=== PATIENT | female | born 1955 | race Caucasian/White ===

== ENCOUNTER 2017-10-10 11:05 | Emergency (ER) | payer BC, SELFPAY ==
[2017-10-10 11:24] VITALS: BP 133/86; PULSE 102; RESP 18; TEMP 36.7; O2SAT 97; BMI 26.2
--- NOTE | 2017-10-10 11:30 | XR_ITS ---
XR chest portable Ordering Physician: Judy Sims MD Patient Age: 62 years: Female HISTORY: ITS.REASON: cough congestion. TECHNIQUE: AP upright chest COMPARISON :Previous 05/18/2017 2 view chest & 05/17/2012 Previous CTA chest 05/18/2017 FINDINGS There are chronic interstitial changes throughout the lung kidd bilaterally most evident towards the lower lobes. Associated with mild hyperexpansion. Emphysematous changes are similar to previous studies . No discrete focal pneumonia. Only question some mild atelectasis at the right lung base along with density from the anterior fat pad at the right cardiophrenic angle. Evident anterior fat pad accounts for the density towards the right cardiophrenic angle. Mild pleural thickening along the lateral right chest is again seen and similar to less evident than previous CXR studies from 05/18/2017 IMPRESSION: Nothing definitely acute. Chronic changes COPD. Emphysematous and chronic changes bilaterally Mild fibrotic lung changes towards bases appear similar to previous studies with nothing definitely acute. Question slight additional atelectasis toward right base.. But No definitive pneumonia currently
--- NOTE | 2017-10-10 11:32 | HMH.EDURI ---
ED Disposition Clinical Impression: Acute bronchitis Disposition: Home, Self-Care Condition on Discharge: Good Instructions: Acute Bronchitis Additional Instructions: see family MD next week; Rx Medrol dose yesseina; will refill your Reglan for your chronic reflux issues since you are out. Prescriptions: methylPREDNISolone [Medrol] 4 mg PO DAILY #1 tab.ds.pk Metoclopramide HCl [Reglan 5mg Tablet] 5 mg PO ACHS 30 Days #60 tab Referrals: Toya Esteves [Primary Care Provider] - - Critical Care Critical Care Time: No Attestation: On 10/10/17, the high probability of a clinically significant, sudden or life threatening deterioration of the following system(s) required my full and direct attention, intervention and personal management. The time I documented below is in addition to time spent performing reported procedures but includes the following listed in this critical care notation. Medical Decision Making - Medical Records Medical records reviewed: Yes: I reviewed the patient's medical records. Vital Signs: 10/10/17 11:24 Temperature 98.0 F Temperature Source Oral Pulse Rate [Right Brachial] 102 H Respiratory Rate 18 Blood Pressure [Right Arm] 133/86 Blood Pressure Mean [Right Arm] 101 Blood Pressure Source [Right Arm] Automatic Cuff Blood Pressure Position [Right Arm] Sitting 02 Sat by Pulse Oximetry 97 Oxygen Delivery Method Room Air - Lab Data Lab results reviewed: Yes: I reviewed the patient's lab results. Lab Results 10/10/17 11:35: WBC 7.0, RBC 5.61 H, Hgb 15.4, Hct 47.3 H, MCV 84.4, MCH 27.5, MCHC 32.6, RDW 13.1, Plt Count 258, MPV 7.3 L, Neut % (Auto) 71.3, Lymph % (Auto) 20.0, [place] % (Auto) 5.5, Eos % (Auto) 2.3, Baso % (Auto) 0.8, Neut # (Auto) 5.0, Lymph # (Auto) 1.4, [place] # (Auto) 0.4, Eos # (Auto) 0.2, Baso # (Auto) 0.1 10/10/17 11:35: Sodium 141, Potassium 4.5, Chloride 104, Carbon Dioxide 25, Anion Gap 16.5 H, BUN 9, Creatinine 1.09 H, Estimated Creat Clear 55, Estimated GFR 51 L, Est GFR ( Amer) 62, Glucose 126 H, Calcium 9.4, Total Bilirubin 0.5, AST 24, ALT 25, Alkaline Phosphatase 113, Total Protein 8.0, Albumin 3.8, Globulin 4.2 H, Albumin/Globulin Ratio 0.9 L 10/10/17 11:35: Lactic Acid 1.1 10/10/17 11:35: Influenza Type A Ag Negative, Influenza Type B Ag Negative Result diagrams: 10/10/17 11:35 10/10/17 11:35 Orders (Tests/Meds): ORDERS Category Date Time Status Blood Culture Routine Micro 10/10/17 11:35 Received - Radiology Data #1 Image(s): Chest Image Reviewed: Yes I reviewed the patient's radiology image Preliminary Findings: No Infiltrates Seen, Normal Heart Size Has some possible ?atelectasis at the bases as well as some changes diffusely consistent with COPD. ED prelim; Radiologist reading states no definitive pneumonia, question atelectasis - [place] Inquiry Pt receiving controlled substance: No URI/Sore Throat HPI - General Stated Complaint: acid reflex Mode of Arrival: Ambulatory Source of Information: Patient Limitations: No Limitations - History of Present Illness HPI Narrative: Pt reports she is a smoker, has had a tight cough for the past seven days with chills; did not have a flu vaccination this year. At times she coughs forcefully and produces some streaks of blood, but she does not have dori hemoptysis. She denies SOB or chest pain, has chronic GERD, denies hematemesis, denies blood from below, denies epistaxis. No sore throat. No FLYNN or calf pain; no syncope; no night sweats or weight loss reported. MD Complaint: cough, nasal congestion Treatments prior to arrival: none - Related Data Previous Rx's Medication Instructions Recorded Metoclopramide HCl [Reglan 5mg 5 mg PO ACHS 30 Days #60 tab 10/10/17 Tablet] methylPREDNISolone [Medrol] 4 mg PO DAILY #1 tab.ds.pk 10/10/17 Allergies Allergy/AdvReac Type Severity Reaction Status Date / Time codeine [CODEINE] Allergy Unknown Unverified 09/08/17 14
--- NOTE | 2017-10-10 11:36 | ED_ITS ---
ED Disposition Clinical Impression: Acute bronchitis Disposition: Home, Self-Care Condition on Discharge: Good Instructions: Acute Bronchitis Additional Instructions: see family MD next week; Rx Medrol dose yessenia; will refill your Reglan for your chronic reflux issues since you are out. Prescriptions: methylPREDNISolone [Medrol] 4 mg PO DAILY #1 tab.ds.pk Metoclopramide HCl [Reglan 5mg Tablet] 5 mg PO ACHS 30 Days #60 tab Referrals: Toya Esteves [Primary Care Provider] - - Critical Care Critical Care Time: No Attestation: On 10/10/17, the high probability of a clinically significant, sudden or life threatening deterioration of the following system(s) required my full and direct attention, intervention and personal management. The time I documented below is in addition to time spent performing reported procedures but includes the following listed in this critical care notation. Medical Decision Making - Medical Records Medical records reviewed: Yes: I reviewed the patient's medical records. Vital Signs: 10/10/17 11:24 Temperature 98.0 F Temperature Source Oral Pulse Rate [Right Brachial] 102 H Respiratory Rate 18 Blood Pressure [Right Arm] 133/86 Blood Pressure Mean [Right Arm] 101 Blood Pressure Source [Right Arm] Automatic Cuff Blood Pressure Position [Right Arm] Sitting 02 Sat by Pulse Oximetry 97 Oxygen Delivery Method Room Air - Lab Data Lab results reviewed: Yes: I reviewed the patient's lab results. Lab Results 10/10/17 11:35: WBC 7.0, RBC 5.61 H, Hgb 15.4, Hct 47.3 H, MCV 84.4, MCH 27.5, MCHC 32.6, RDW 13.1, Plt Count 258, MPV 7.3 L, Neut % (Auto) 71.3, Lymph % (Auto ) 20.0, [place] % (Auto) 5.5, Eos % (Auto) 2.3, Baso % (Auto) 0.8, Neut # (Auto) 5.0, Lymph # (Auto) 1.4, [place] # (Auto) 0.4, Eos # (Auto) 0.2, Baso # (Auto) 0.1 10/10/17 11:35: Sodium 141, Potassium 4.5, Chloride 104, Carbon Dioxide 25, Anion Gap 16.5 H, BUN 9, Creatinine 1.09 H, Estimated Creat Clear 55, Estimated GFR 51 L, Est GFR ( Amer) 62, Glucose 126 H, Calcium 9.4, Total Bilirubin 0.5, AST 24, ALT 25, Alkaline Phosphatase 113, Total Protein 8.0, Albumin 3.8, Globulin 4.2 H, Albumin/Globulin Ratio 0.9 L 10/10/17 11:35: Lactic Acid 1.1 10/10/17 11:35: Influenza Type A Ag Negative, Influenza Type B Ag Negative Result diagrams: 10/10/17 11:35 10/10/17 11:35 Orders (Tests/Meds): ORDERS Category Date Time Status Blood Culture Routine Micro 10/10/17 11:35 Received - Radiology Data #1 Image(s): Chest Image Reviewed: Yes I reviewed the patient's radiology image Preliminary Findings: No Infiltrates Seen, Normal Heart Size Has some possible ?atelectasis at the bases as well as some changes diffusely consistent with COPD. ED prelim; Radiologist reading states no definitive pneumonia, question atelectasis - [place] Inquiry Pt receiving controlled substance: No URI/Sore Throat HPI - General Stated Complaint: acid reflex Mode of Arrival: Ambulatory Source of Information: Patient Limitations: No Limitations - History of Present Illness HPI Narrative: Pt reports she is a smoker, has had a tight cough for the past seven days with chills; did not have a flu vaccination this year. At times she coughs forcefully and produces some streaks of blood, but she does not have dori hemoptysis. She denies SOB or chest pain, has chronic GERD, denies hematemesis, denies blood from below, d
[2017-10-10 12:04] LABS: Basophils # 0.1 K/mm3 (0-0.2); Basophils % 0.8 % (0.1-2.0); Eosinophils # 0.2 K/mm3 (0.0-0.4); Eosinophils % 2.3 % (0.1-12.0); Hematocrit 47.3 % (37.0-47.0); Hemoglobin 15.4 g/dL (12.2-16.2); Lymphocytes # 1.4 K/mm3 (0.7-4.5); Mean Corpuscular HGB Conc 32.6 g/dL (31.8-35.4); Mean Corpuscular Hemoglobin 27.5 pg (27.0-31.2); Mean Corpuscular Volume 84.4 fl (81-99); Mean Platelet Volume 7.3 fl (7.4-10.4); Monocytes # 0.4 K/mm3 (0.1-1.0); Monocytes % 5.5 % (1.7-9.3); Neutrophils % 71.3 % (37.0-80.0); Platelet Count 258 K/mm3 (142-424); Red Blood Count 5.61 M/mm3 (4.20-5.40); Red Cell Distribution Width 13.1 % (11.5-17.5)
[2017-10-10 12:09] LABS: Lactic Acid 1.1 mmol/L (0.4-2.0)
[2017-10-10 14:32] LABS: Alanine Aminotransferase 25 U/L (12-78); Albumin Level 3.8 gm/dL (3.4-5.0); Albumin/Globulin Ratio 0.9 (1.1-1.8); Alkaline Phosphatase 113 U/L (46-116); Anion Gap 16.5 mEq/L (5-15); Aspartate Amino Transferase 24 U/L (15-37); Bilirubin,Total 0.5 mg/dL (0.2-1.0); Blood Urea Nitrogen 9 mg/dL (7-18); Calcium 9.4 mg/dL (8.5-10.1); Carbon Dioxide 25 mmol/L (21.0-32.0); Chloride 104 mmol/L (98-107); Creatinine Clearance Estimated 55 mL/min (0-300); Creatinine,Serum 1.09 mg/dL (0.55-1.02); Estimated Glomerular Filt Rate 51 ml/min (>60); GFR (African American) 62 ML/MIN (>60); Globulin 4.2 gm/dl (1.3-3.2); Glucose 126 mg/dL (74-106); Potassium 4.5 mmoL/L (3.5-5.1); Sodium 141 mmol/L (136-145)
== END 2017-10-10 15:45 | disposition home or self-care (01) ==
LOC: UTC 11:08 → ER 11:20 → UTC 11:22 → ER 11:27
PROVIDERS: Emergency Provider Emergency Medicine; Family Provider Nurse Practitioner Family; PCP Nurse Practitioner Family
DX: J20.9 Acute bronchitis, unspecified (principal)
CPT/HCPCS: 71045; 80053; 83605; 85025; 87040; 87275; 87276; 99284

== ENCOUNTER → 2017-11-11 09:35 | Outpatient (POV) | payer BC, SELFPAY | PROVIDERS: Visit Provider Physician Assistant Medical | DX: Z00.00 Encounter for general adult medical examination without abnormal findings (principal) ==

== ENCOUNTER 2017-11-19 12:42 | Emergency (ER) | payer BC, SELFPAY ==
[2017-11-19 12:43] VITALS: BP 132/74; PULSE 102; RESP 16; TEMP 36.6; O2SAT 95; BMI 26.6
--- NOTE | 2017-11-19 13:08 | XR_ITS ---
XR chest 2V HISTORY: ITS.REASON: Coughing blood ORDERING PHYSICIAN: Mg Navarrete MD PATIENT AGE: 62 years COMPARISON: 10/10/2017 FINDINGS: Normal heart size. Chronic coarsening of the bronchovascular markings is noted with COPD and fibrotic changes with chronic changes in the lung bases. Overall, there is been no significant change. No acute bony anomalies. There is mild biapical pleural thickening. IMPRESSION: COPD with chronic coarsening of the bronchovascular markings. No acute finding.
--- NOTE | 2017-11-19 13:20 | ED_ITS ---
ED Disposition Clinical Impression: UGI bleed, Reflux esophagitis Disposition: Xfer Short-Term Hosp Condition on Discharge: Fair Instructions: DI for Diarrhea and Traveler's Diarrhea -- Adult, DI for Diarrhea and Traveler's Diarrhea -- Child, DI for Nausea -- Adult, DI for Nausea -- Child Referrals: Provider,Referral, [Primary Care Provider] - Forms: Transfer Record - ED - Critical Care Critical Care Time: No Attestation: On 11/19/17, the high probability of a clinically significant, sudden or life threatening deterioration of the following system(s) required my full and direct attention, intervention and personal management. The time I documented below is in addition to time spent performing reported procedures but includes the following listed in this critical care notation. Medical Decision Making Vital Signs: 11/19/17 12:43 11/19/17 13:52 Temperature 97.8 F Temperature Source Oral Pulse Rate [Left Radial] 102 H Pulse Rate [Orthostatic Lying Right Radial] 85 Pulse Rate [Orthostatic Sitting Right Brachial] 96 H Pulse Rate [Orthostatic Standing Left Radial] 94 H Respiratory Rate 16 Blood Pressure [Orthostatic Lying Right Arm] 124/70 Blood Pressure [Orthostatic Sitting Right Arm] 134/81 Blood Pressure [Orthostatic Standing Right Arm] 150/78 Blood Pressure [Right Arm] 132/74 Blood Pressure Mean [Right Arm] 93 Blood Pressure Source [Right Arm] Automatic Cuff Blood Pressure Position [Right Arm] Sitting 02 Sat by Pulse Oximetry 95 Oxygen Delivery Method Room Air - Lab Data Lab results reviewed: Yes: I reviewed the patient's lab results. Lab Results 11/19/17 13:00: WBC 8.1, RBC 5.56 H, Hgb 15.1, Hct 46.5, MCV 83.7, MCH 27.2, MCHC 32.5, RDW 13.3, Plt Count 273, MPV 7.7, Neut % (Auto) 72.0, Lymph % (Auto) 20.0, [place] % (Auto) 5.8, Eos % (Auto) 1.7, Baso % (Auto) 0.5, Neut # (Auto) 5.8 , Lymph # (Auto) 1.6, [place] # (Auto) 0.5, Eos # (Auto) 0.1, Baso # (Auto) 0.0 11/19/17 13:00: PT 10.1, INR 0.94, APTT 25.4 11/19/17 13:00: Sodium 141, Potassium 4.1, Chloride 104, Carbon Dioxide 27, Anion Gap 14.1, BUN 7, Creatinine 0.94, Estimated Creat Clear 62, Estimated GFR 61, Est GFR ( Amer) 73, Glucose 146 H, Calcium 9.0, Total Bilirubin 0.6, AST 15, ALT 25, Alkaline Phosphatase 114, Total Protein 7.8, Albumin 3.5, Globulin 4.3 H, Albumin/Globulin Ratio 0.8 L Result diagrams: 11/19/17 13:00 11/19/17 13:00 Orders (Tests/Meds): ED MEDICATIONS Generic Name Dose Route Start Last Admin Trade Name Freq PRN Reason Stop Dose Admin Pantoprazole Sodium 80 mg/ 100 mls @ 10 mls/hr 11/19/17 13:30 11/19/17 13:32 Sodium Chloride IV 11/22/17 13:29 10 mls/hr .Q10H WILMA Administration Discontinued Medications Generic Name Dose Route Start Last Admin Trade Name Freq PRN Reason Stop Dose Admin Sodium Chloride 500 mls @ 999 mls/hr 11/19/17 13:30 11/19/17 13:30 Sod Chlor 0.9% 1000ml Bag IV 11/19/17 14:00 999 mls/hr .Q31M WILMA Administration ORDERS Category Date Time Status Type and Screen Stat BBK 11/19/17 13:16 Ordered Chest XR 2 view (NOT portable) [XR chest 2V] Stat Exams 11/19/17 13:08 Taken XR abdomen min 2V Stat Exams 11/19/17 13:21 Taken - Radiology Data #1 Image(s): Chest, Abdomen Image Reviewed: Yes
--- NOTE | 2017-11-19 13:21 | XR_ITS ---
XR abdomen min 2V HISTORY: ITS.REASON: UGI bleeding. ORDERING PHYSICIAN: Mg Navarrete MD PATIENT AGE: 62 years COMPARISON: None FINDINGS: There is a nonspecific bowel gas pattern with gas-filled loops of large and small bowel. No definite obstruction. No free air apparent. 2 mm calcific density is present in the left mid abdominal region nonspecific could be due to a renal stone. A calcification is present in the left mid pelvic area and may be vascular versus a ureteral calculus. Please correlate clinically. Prominent osteophyte is present on the left at L3-L4. IMPRESSION: Nonspecific bowel gas pattern. No obstruction or free air. Left mid abdominal and left pelvic calcification nonspecific
[2017-11-19 13:31] LABS: Basophils % 0.5 % (0.1-2.0); Eosinophils # 0.1 K/mm3 (0.0-0.4); Eosinophils % 1.7 % (0.1-12.0); Hematocrit 46.5 % (37.0-47.0); Hemoglobin 15.1 g/dL (12.2-16.2); Lymphocytes # 1.6 K/mm3 (0.7-4.5); Mean Corpuscular HGB Conc 32.5 g/dL (31.8-35.4); Mean Corpuscular Hemoglobin 27.2 pg (27.0-31.2); Mean Corpuscular Volume 83.7 fl (81-99); Mean Platelet Volume 7.7 fl (7.4-10.4); Monocytes # 0.5 K/mm3 (0.1-1.0); Monocytes % 5.8 % (1.7-9.3); Neutrophils # 5.8 K/mm3 (1.8-7.8); Platelet Count 273 K/mm3 (142-424); Red Blood Count 5.56 M/mm3 (4.20-5.40); Red Cell Distribution Width 13.3 % (11.5-17.5); White Blood Count 8.1 K/mm3 (4.8-10.8)
[2017-11-19 13:38] LABS: Activated Partial Thrombo Time 25.4 seconds (23.6-34.0); INR 0.94 (0.9-1.1); Prothrombin Time 10.1 seconds (9.4-11.8)
[2017-11-19 13:39] LABS: Alanine Aminotransferase 25 U/L (12-78); Albumin Level 3.5 gm/dL (3.4-5.0); Albumin/Globulin Ratio 0.8 (1.1-1.8); Alkaline Phosphatase 114 U/L (46-116); Anion Gap 14.1 mEq/L (5-15); Aspartate Amino Transferase 15 U/L (15-37); Bilirubin,Total 0.6 mg/dL (0.2-1.0); Blood Urea Nitrogen 7 mg/dL (7-18); Carbon Dioxide 27 mmol/L (21.0-32.0); Chloride 104 mmol/L (98-107); Creatinine Clearance Estimated 62 mL/min (0-300); Creatinine,Serum 0.94 mg/dL (0.55-1.02); Estimated Glomerular Filt Rate 61 ml/min (>60); GFR (African American) 73 ML/MIN (>60); Globulin 4.3 gm/dl (1.3-3.2); Glucose 146 mg/dL (74-106); Potassium 4.1 mmoL/L (3.5-5.1); Sodium 141 mmol/L (136-145); Total Protein,Serum 7.8 gm/dL (6.4-8.2)
[2017-11-19 13:52] VITALS: BP 124/70; BP 134/81; BP 150/78; PULSE 85; PULSE 94; PULSE 96
[2017-11-19 14:19] VITALS: BP 132/70; PULSE 82; RESP 18; TEMP 36.8; O2SAT 98
== END 2017-11-19 14:19 | disposition short-term general hospital (02) ==
PROVIDERS: Emergency Provider Emergency Medicine; Family Provider Nurse Practitioner Family
DX: K92.2 Gastrointestinal hemorrhage, unspecified (principal); K21.0 Gastro-esophageal reflux disease with esophagitis; Z79.899 Other long term (current) drug therapy
CPT/HCPCS: 71046; 74019; 80053; 85025; 85610; 85730; 86850; 96365; 96366; 96367; 99282

== ENCOUNTER → 2018-08-03 15:59 | Outpatient (CLI) | payer BC, SELFPAY ==
[2018-08-03 16:26] LABS: Eosinophils # 0.1 K/mm3 (0.0-0.4); Eosinophils % 1.1 % (0.1-12.0); Hematocrit 47.5 % (37.0-47.0); Hemoglobin 15.2 g/dL (12.2-16.2); Lymphocytes # 0.6 K/mm3 (0.7-4.5); Lymphocytes % 7.7 % (10-50); Mean Corpuscular HGB Conc 31.9 g/dL (31.8-35.4); Mean Corpuscular Hemoglobin 26.3 pg (27.0-31.2); Mean Corpuscular Volume 82.3 fl (81-99); Mean Platelet Volume 7.3 fl (7.4-10.4); Monocytes # 0.1 K/mm3 (0.1-1.0); Monocytes % 1.3 % (1.7-9.3); Neutrophils # 6.5 K/mm3 (1.8-7.8); Platelet Count 223 K/mm3 (142-424); Red Blood Count 5.77 M/mm3 (4.20-5.40); Red Cell Distribution Width 13.6 % (11.5-17.5); White Blood Count 7.3 K/mm3 (4.8-10.8)
[2018-08-03 16:31] LABS: INR 0.93 (0.9-1.1); Prothrombin Time 9.6 seconds (9.4-11.8)
[2018-08-03 16:34] LABS: MANUAL DIFFERENTIAL MANUAL DIFFERENTIAL (MANUAL DIFF)
[2018-08-03 17:14] LABS: Lymphocytes % 9 % (10-50); Monocytes % 1 % (2-9); Neutrophils % 89 % (42-76); Platelet Estimate Normal; RBC Morphology Normal; Total Cells Counted 100
[2018-08-03 20:15] LABS: Anion Gap 15.4 mEq/L (5-15); Blood Urea Nitrogen 27 mg/dL (7-18); Carbon Dioxide 27 mmol/L (21.0-32.0); Chloride 97 mmol/L (98-107); Creatinine,Serum 0.87 mg/dL (0.55-1.02); Estimated Glomerular Filt Rate 66 ml/min (>60); GFR (African American) 80 ML/MIN (>60); Glucose 129 mg/dL (74-106); Potassium 4.4 mmoL/L (3.5-5.1); Sodium 135 mmol/L (136-145)
== END ==
PROVIDERS: Visit Provider Orthopaedic Surgery
DX: Z01.818 Encounter for other preprocedural examination (principal); S42.301A Unspecified fracture of shaft of humerus, right arm, initial encounter for closed fracture
CPT/HCPCS: 36415; 80048; 85007; 85025; 85610; 86850; 93005

== ENCOUNTER → 2018-08-11 08:26 | Outpatient (CLI) | payer BC, SELFPAY ==
--- NOTE | 2018-08-11 08:34 | XR_ITS ---
XR humerus RT CLINICAL INDICATION: Follow-up ORIF ITS.REASON: Rt humerus fracture ORDERING PHYSICIAN: Magaly Goyal MD PATIENT AGE: 63 years Comparison: 08/05/2019 FINDINGS: Intramedullary sheridan remains in place stabilizing the midshaft pathologic fracture with central lytic lesion with good alignment. No significant change. IMPRESSION: No change mid shaft pathologic fracture with good alignment status post ORIF
== END ==
PROVIDERS: PCP Nurse Practitioner Family; Visit Provider Orthopaedic Surgery
DX: S42.301A Unspecified fracture of shaft of humerus, right arm, initial encounter for closed fracture (principal)
CPT/HCPCS: 73060

== ENCOUNTER → 2018-08-25 09:23 | Outpatient (CLI) | payer BC, SELFPAY ==
--- NOTE | 2018-08-25 09:26 | XR_ITS ---
XR humerus RT CLINICAL INDICATION: Follow-up pathological fracture/ORIF ITS.REASON: humerus fx ORDERING PHYSICIAN: Magaly Goyal MD PATIENT AGE: 63 years Comparison: 08/11/2018 FINDINGS: Intramedullary sheridan remains in place stabilizing the midshaft pathologic fracture with central lytic lesion. Does remain good alignment. The lesion however has a somewhat more permeative appearance along the junction of the mid-distal third of the humerus. There also appears to be less bone density at the region of the fracture site suggesting progression of the lytic process IMPRESSION: 1. Good alignment of the pathologic fracture of the midshaft of the right humerus status post ORIF 2. There is suggestion of increasing lytic process of the mid shaft of the humerus with permeative appearance of the distal one third of the humerus suggesting progression of metastatic lesion
== END ==
PROVIDERS: PCP Nurse Practitioner Family; Visit Provider Orthopaedic Surgery
DX: M25.511 Pain in right shoulder (principal)
CPT/HCPCS: 73060

== ENCOUNTER → 2018-09-17 09:09 | Outpatient (CLI) | payer BC, SELFPAY ==
--- NOTE | 2018-09-17 09:11 | XR_ITS ---
XR humerus RT Ordering Physician: Magaly Goyal MD Patient Age: 63 years: Female HISTORY: ITS.REASON: Ap/ Lateral TECHNIQUE: AP lateral view right humerus COMPARISON :09/01/2018 right humerus. FINDINGS Long intramedullary sheridan passing through the length of the right humerus shaft providing fixation to the pathologic fracture lesion midshaft right humerus. Again the permeative lytic destructive lesion mid humeral shaft with this process extending slightly more towards distal fragment. Similar to previous study.... Very irregular appearance to the bone throughout this region. Circumferential destructive changes midportion quite pronounced. Very stippled inhomogeneous cortex appearance more distal.. There is some early very thin laminar reactive bone/myositis/dystrophic bone or elevated periosteal reactionseen along the lateral/anterior to the proximal humerus shaft.: Overall the relationships of the bone in the fixation elements appear stable to the fixation screws secure the sheridan proximal with one transversing the measuring right distal most shaft. 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 Stable ORIF. With Stable intramedullary sheridan bridging this lesion. Stable position bone and fixation elements.
== END ==
PROVIDERS: PCP Nurse Practitioner Family; Visit Provider Orthopaedic Surgery
DX: S42.301A Unspecified fracture of shaft of humerus, right arm, initial encounter for closed fracture (principal)
CPT/HCPCS: 73060

== ENCOUNTER 2018-09-27 12:48 | Outpatient (CLI) | payer BC, SELFPAY ==
[2018-09-27 13:28] LABS: Alanine Aminotransferase 18 U/L (12-78); Albumin Level 2.5 gm/dL (3.4-5.0); Albumin/Globulin Ratio 0.6 (1.1-1.8); Alkaline Phosphatase 87 U/L (46-116); Anion Gap 12.8 mEq/L (5-15); Aspartate Amino Transferase 17 U/L (15-37); Bilirubin,Total 0.4 mg/dL (0.2-1.0); Blood Urea Nitrogen 10 mg/dL (7-18); Calcium 8.9 mg/dL (8.5-10.1); Carbon Dioxide 28 mmol/L (21.0-32.0); Chloride 100 mmol/L (98-107); Creatinine,Serum 0.94 mg/dL (0.55-1.02); Estimated Glomerular Filt Rate 60 ml/min (>60); GFR (African American) 73 ML/MIN (>60); Globulin 4.2 gm/dl (1.3-3.2); Glucose 98 mg/dL (74-106); Potassium 3.8 mmoL/L (3.5-5.1); Sodium 137 mmol/L (136-145); Total Protein,Serum 6.7 gm/dL (6.4-8.2)
[2018-09-27 13:40] LABS: Basophils % 0.4 % (0.1-2.0); Eosinophils # 0.1 K/mm3 (0.0-0.4); Eosinophils % 0.8 % (0.1-12.0); Hematocrit 34.3 % (37.0-47.0); Hemoglobin 11.3 g/dL (12.2-16.2); Lymphocytes # 1.1 K/mm3 (0.7-4.5); Lymphocytes % 14.5 % (10-50); Mean Corpuscular Volume 84.8 fl (81-99); Mean Platelet Volume 7.2 fl (7.4-10.4); Monocytes # 0.6 K/mm3 (0.1-1.0); Neutrophils # 5.6 K/mm3 (1.8-7.8); Neutrophils % 76.3 % (37.0-80.0); Platelet Count 405 K/mm3 (142-424); Red Blood Count 4.04 M/mm3 (4.20-5.40); Red Cell Distribution Width 17.8 % (11.5-17.5); White Blood Count 7.3 K/mm3 (4.8-10.8)
== END 2018-09-27 13:22 | disposition home or self-care (01) ==
LOC: LAB 12:49
PROVIDERS: Visit Provider Internal Medicine Hematology & Oncology
DX: C79.51 Secondary malignant neoplasm of bone (principal)
CPT/HCPCS: 80053; 85025; J1642

== ENCOUNTER → 2018-10-15 08:45 | Outpatient (CLI) | payer BC, SELFPAY ==
--- NOTE | 2018-10-15 08:49 | XR_ITS ---
XR humerus RT CLINICAL INDICATION: Follow-up ORIF pathological fracture ITS.REASON: Rt humerus fx ORDERING PHYSICIAN: Magaly Goyal MD PATIENT AGE: 63 years Comparison: 09/17/2018 FINDINGS: Intramedullary sheridan remains in place stabilizing the midshaft pathologic humeral fracture. Destructive lesion is once again noted involving the mid shaft and in the junction of the mid and distal third shaft of the humerus. This does not appear significantly changed. There remains good alignment with no significant displacement. IMPRESSION: No change good alignment status post ORIF pathological fracture of the humerus with mid and distal shaft lytic lesion
== END ==
PROVIDERS: PCP Nurse Practitioner Family; Visit Provider Orthopaedic Surgery
DX: M84.521A Pathological fracture in neoplastic disease, right humerus, initial encounter for fracture (principal)
CPT/HCPCS: 73060

== ENCOUNTER → 2018-10-18 13:07 | Outpatient (CLI) | payer BC, SELFPAY ==
[2018-10-18 14:02] LABS: Alanine Aminotransferase 14 U/L (12-78); Albumin Level 2.6 gm/dL (3.4-5.0); Albumin/Globulin Ratio 0.7 (1.1-1.8); Alkaline Phosphatase 87 U/L (46-116); Anion Gap 9.8 mEq/L (5-15); Aspartate Amino Transferase 15 U/L (15-37); Bilirubin,Total 0.3 mg/dL (0.2-1.0); Blood Urea Nitrogen 11 mg/dL (7-18); Calcium 9.3 mg/dL (8.5-10.1); Carbon Dioxide 33 mmol/L (21.0-32.0); Chloride 100 mmol/L (98-107); Creatinine,Serum 1.16 mg/dL (0.55-1.02); Estimated Glomerular Filt Rate 47 ml/min (>60); GFR (African American) 57 ML/MIN (>60); Globulin 3.6 gm/dl (1.3-3.2); Glucose 87 mg/dL (74-106); Sodium 140 mmol/L (136-145); Total Protein,Serum 6.2 gm/dL (6.4-8.2)
[2018-10-18 14:03] LABS: Basophils % 0.2 % (0.1-2.0); Eosinophils % 0.5 % (0.1-12.0); Hematocrit 33.8 % (37.0-47.0); Hemoglobin 10.7 g/dL (12.2-16.2); Lymphocytes # 0.7 K/mm3 (0.7-4.5); Lymphocytes % 12.9 % (10-50); Mean Corpuscular HGB Conc 31.8 g/dL (31.8-35.4); Mean Corpuscular Hemoglobin 27.9 pg (27.0-31.2); Mean Corpuscular Volume 87.7 fl (81-99); Mean Platelet Volume 7.6 fl (7.4-10.4); Monocytes # 0.6 K/mm3 (0.1-1.0); Monocytes % 10.8 % (1.7-9.3); Neutrophils # 4.3 K/mm3 (1.8-7.8); Neutrophils % 75.7 % (37.0-80.0); Platelet Count 386 K/mm3 (142-424); Red Blood Count 3.85 M/mm3 (4.20-5.40); Red Cell Distribution Width 18.7 % (11.5-17.5); White Blood Count 5.7 K/mm3 (4.8-10.8)
[2018-10-18 14:18] LABS: Potassium 2.8 mmoL/L (3.5-5.1)
== END ==
PROVIDERS: Visit Provider Internal Medicine Hematology & Oncology
DX: C79.51 Secondary malignant neoplasm of bone (principal)
CPT/HCPCS: 80053; 85025

== ENCOUNTER → 2018-11-08 09:28 | Outpatient (CLI) | payer BC, SELFPAY ==
--- NOTE | 2018-11-08 09:49 | PC.NURSE ---
when attempting to access pt's right upper chest pac, no blood return noted. flushes easily. 3 dot triangle palpable when accessed. Pt taken back to lab by wheel chair for peripheral stick.
[2018-11-08 10:21] LABS: Basophils % 0.5 % (0.1-2.0); Eosinophils # 0.1 K/mm3 (0.0-0.4); Eosinophils % 4.5 % (0.1-12.0); Hematocrit 26.4 % (37.0-47.0); Hemoglobin 8.9 g/dL (12.2-16.2); Lymphocytes # 0.6 K/mm3 (0.7-4.5); Lymphocytes % 25.7 % (10-50); Mean Corpuscular HGB Conc 33.6 g/dL (31.8-35.4); Mean Corpuscular Hemoglobin 29.6 pg (27.0-31.2); Mean Platelet Volume 7.7 fl (7.4-10.4); Monocytes # 0.3 K/mm3 (0.1-1.0); Monocytes % 12.4 % (1.7-9.3); Neutrophils # 1.4 K/mm3 (1.8-7.8); Neutrophils % 56.8 % (37.0-80.0); Platelet Count 276 K/mm3 (142-424); White Blood Count 2.4 K/mm3 (4.8-10.8)
[2018-11-08 11:09] LABS: Alanine Aminotransferase 11 U/L (12-78); Albumin Level 2.6 gm/dL (3.4-5.0); Albumin/Globulin Ratio 0.9 (1.1-1.8); Alkaline Phosphatase 99 U/L (46-116); Anion Gap 16.6 mEq/L (5-15); Aspartate Amino Transferase 17 U/L (15-37); Bilirubin,Total 0.4 mg/dL (0.2-1.0); Blood Urea Nitrogen 10 mg/dL (7-18); Calcium 7.7 mg/dL (8.5-10.1); Carbon Dioxide 27 mmol/L (21.0-32.0); Chloride 101 mmol/L (98-107); Creatinine,Serum 1.45 mg/dL (0.55-1.02); Estimated Glomerular Filt Rate 37 ml/min (>60); GFR (African American) 44 ML/MIN (>60); Glucose 95 mg/dL (74-106); Sodium 142 mmol/L (136-145); Total Protein,Serum 5.6 gm/dL (6.4-8.2)
[2018-11-08 11:27] LABS: Potassium 2.6 mmoL/L (3.5-5.1)
== END ==
PROVIDERS: Visit Provider Internal Medicine Hematology & Oncology
DX: C79.31 Secondary malignant neoplasm of brain (principal); C79.9 Secondary malignant neoplasm of unspecified site; C79.51 Secondary malignant neoplasm of bone
CPT/HCPCS: 36415; 80053; 85025; J1642

== ENCOUNTER → 2018-12-17 10:42 | Outpatient (CLI) | payer BC, SELFPAY ==
--- NOTE | 2018-12-17 10:46 | XR_ITS ---
XR humerus RT CLINICAL INDICATION: Follow-up ORIF pathologic fracture ITS.REASON: rt humerus fracture ORDERING PHYSICIAN: Magaly Goyal MD PATIENT AGE: 63 years Comparison: 10/15/2018 FINDINGS: Intramedullary sheridan remains in place stabilizing nondisplaced fracture of the midshaft of the humerus. Lytic lesion is once again noted however there does appear to be some increase in callus formation and improvement in the bony lysis compared to the previous exam IMPRESSION: Good alignment status post ORIF mid shaft pathologic fracture of the humerus with some increase in callus formation and suggestion of some improvement in bony lysis
== END ==
PROVIDERS: PCP Nurse Practitioner Family; Visit Provider Orthopaedic Surgery
DX: M84.529 Pathological fracture in neoplastic disease, unspecified humerus (principal)
CPT/HCPCS: 73060